=== PATIENT | female | born 1935 | race Caucasian/White ===

== ENCOUNTER 2020-03-26 22:12 | Inpatient (IN) | payer MEDICARE, OTHER ==
--- NOTE | 2020-03-26 22:34 | ERPHSYRPT ---
- History of Present Illness Time Seen by Provider: 03/26/20 22:34 Source: patient, family, EMS Exam Limitations: clinical condition Physician History: This is an 85-year-old white female who presents with fever and cough since yesterday (03/25/2020). Today she is still with a persistent low-grade fever but there is more confusion. Her has similar symptoms. She does not complain of shortness of breath or chest pain. She has no abdominal pain. She has no nausea vomiting or diarrhea. She had a headache earlier today but that has since resolved. 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 Associated Symptoms: confusion, cough, headache Allergies/Adverse Reactions: No Known Drug Allergies Allergy (Verified 03/26/20 23:14) Travel Risk - International Travel Have you traveled outside of the country in past 3 weeks: No - Coronavirus Screening Symptoms: Cough: New Onset, Headaches/Body Aches/Fatigue Close contact with a COVID-19 positive Pt in past 14-21 Days: No - Review of Systems Constitutional: Fever Eyes: No Symptoms Ears, Nose, & Throat: No Symptoms Respiratory: Cough Cardiac: No Symptoms Abdominal/Gastrointestinal: No Symptoms, No Abdominal Pain, No Nausea, No Vomiting, No Diarrhea Genitourinary Symptoms: No Symptoms Musculoskeletal: No Symptoms Skin: No Symptoms Neurological: No Symptoms Psychological: No Symptoms Endocrine: No Symptoms Hematologic/Lymphatic: No Symptoms Immunological/Allergic: No Symptoms All Other Systems: Reviewed and Negative - Past Medical History Pertinent Past Medical History: Yes Neurological History: No Pertinent History ENT History: No Pertinent History Cardiac History: No Pertinent History Respiratory History: No Pertinent History Endocrine Medical History: No Pertinent History Musculoskeletal History: No Pertinent History GI Medical History: No Pertinent History History: No Pertinent History Psycho-Social History: No Pertinent History Female Reproductive Disorders: No Pertinent History - Past Surgical History Past Surgical History: Yes Neuro Surgical History: No Pertinent History Cardiac: No Pertinent History Respiratory: No Pertinent History Gastrointestinal: No Pertinent History Genitourinary: No Pertinent History Musculoskeletal: No Pertinent History Female Surgical History: No Pertinent History - Social History Smoking Status: Never smoker - Nursing Vital Signs Nursing Vital Signs: Initial Vital Signs Temperature 99.4 F 03/26/20 22:52 Pulse Rate 85 03/26/20 22:52 Respiratory Rate 18 03/26/20 22:52 Blood Pressure 147/67 03/26/20 22:52 O2 Sat by Pulse Oximetry 92 L 03/26/20 22:52 Pain Scale Pain Intensity 0 - Physical Exam General Appearance: no apparent distress, alert, anxiety Eye Exam: PERRL/EOMI, eyes nml inspection ENT Exam: normal ENT inspection Neck Exam: normal inspection, non-tender, supple, full range of motion, trachea midline Respiratory Exam: normal breath sounds, chest non-tender, lungs clear, no respiratory distress, no accessory muscle use, No respiratory distress Cardiovascular/Chest Exam: normal heart sounds, regular rate/rhythm, normal peripheral pulses Gastrointestinal/Abdominal Exam: soft, non tender, no distention, no mass, no guarding, no ecchymosis, no organomegaly, no pulsatile mass, normal bowel sounds, No tenderness Pelvic Exam: not done Rectal Exam: not done Extremity Exam: non-tender Neurologic Exam: alert, cooperative, 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 No comparison EKG available) Ordered Tests: Active Orders 24 hr Category Date Time Status EKG-ER Only STAT Care 03/26/20 22:59 Active IV Insertion STAT Care 03/26/20 22:59 Active Pulse Oximetry (ED) STAT Care 03/26/20 22:59 Active CHEST 1 VIEW (PORTABLE) Stat Exams 03/27/20 00:02 Taken BLOOD CULTURE Stat Lab 03/26/20 22:47 Ordered CBC W DIFF Stat Lab 03/26/20 22:47 Completed CMP Stat Lab 03/26/20 22:47 Completed Lactic Acid Stat Lab 03/26/20 22:59 Completed Manual Differential NC Stat Lab 03/26/20 22:47 Completed [place] Screen Stat Lab 03/26/20 22:47 Completed UA W/RFX UR CULTURE Stat Lab 03/26/20 23:00 Completed Transfer Order Routine Transfer 03/27/20 Ordered Medication Summary Generic Name Dose Route Start Last Admin Trade Name Freq PRN Reason Stop Dose Admin Ceftriaxone Sodium/Dextrose 1 g in 50 mls @ 100 mls/hr 03/27/20 02:08 Rocephin 1 Gm-D5w 50 Ml Bag IV 03/27/20 02:37 STAT STA Discontinued Medications Generic Name Dose Route Start Last Admin Trade Name Nabila PRN Reason Stop Dose Admin Sodium Chloride 1,000 mls @ 999 mls/hr 03/26/20 22:59 03/26/20 23:52 Sodium Chloride 0.9% 1000 Ml IV 03/26/20 23:59 Not Given .Q1H1M STA Sodium Chloride Confirm 03/26/20 23:08 Sodium Chloride 0.9% 1000 Ml Administered 03/26/20 23:09 Dose 1,000 mls @ ud .ROUTE .STK-MED ONE Lab/Rad Data: Laboratory Result Diagrams 03/26/20 22:47 03/26/20 22:47 Laboratory Results 03/27/20 03/26/20 03/26/20 Range/Units 00:20 23:00 22:59 WBC (4.0-10.5) K/mm3 RBC (4.1-5.4) M/mm3 Hgb (12.0-16.0) gm/dl Hct (35-47) % MCV (78-100) fl MCH (26-32) pg MCHC (32-36) g/dl RDW (11.5-14.0) % Plt Count (150-450) K/mm3 MPV (7.5-11.0) fl Sodium (137-145) mmol/L Potassium (3.5-5.1) mmol/L Chloride (98-107) mmol/L Carbon Dioxide (22-30) mmol/L Anion Gap (5-15) MEQ/L BUN (7-17) mg/dL Creatinine (0.52-1.04) mg/dL Estimated GFR ML/MIN Glucose (74-106) mg/dL Lactic Acid 0.6 (0.4-2.0) Calcium (8.4-10.2) mg/dL Total Bilirubin (0.2-1.3) mg/dL AST (14-36) U/L ALT (0-35) U/L Alkaline Phosphatase (38-126) U/L Serum Total Protein (6.3-8.2) g/dL Albumin (3.5-5.0) g/dL Urine Color YELLOW (YELLOW) Urine Appearance SLIGHTLY CLOUDY (CLEAR) Urine pH 5.0 (5-6) Ur Specific [place] 1.018 (1.005-1.025) Urine Protein NEGATIVE (Negative) Urine Ketones NEGATIVE (NEGATIVE) Urine Blood NEGATIVE (0-5) Daniel/ul Urine Nitrite NEGATIVE (NEGATIVE) Urine Bilirubin NEGATIVE (NEGATIVE) Urine Urobilinogen NEGATIVE (0-1) mg/dL Ur Leukocyte Esterase NEGATIVE (NEGATIVE) Urine WBC (Auto) 3-5 (0-5) /HPF Urine RBC (Auto) 3-5 (0-2) /HPF U Hyaline Cast (Auto) 3-5 (0-2) /LPF U Epithel Cells (Auto) NONE (FEW) /HPF Urine Bacteria (Auto) NONE (NEGATIVE) /HPF Urine Mucus (Auto) SLIGHT (NEGATIVE) /HPF Urine Culture Reflexed NO (NO) Urine Glucose NEGATIVE (NEGATIVE) mg/dL Monoscreen (Negative) Influenza Type A Ag NEGATIVE (NEGATIVE) Influenza Type B Ag NEGATIVE (NEGATIVE) RSV (PCR) NEGATIVE (Negative) SARS-CoV-2 (PCR) POSITIVE A (NEGATIVE) Group A Strep Antibody NOT DETECTED (NEGATIVE) 03/26/20 03/26/20 03/26/20 Range/Units 22:47 22:47 22:47 WBC 9.4 (4.0-10.5) K/mm3 RBC 4.20 (4.1-5.4) M/mm3 Hgb 13.1 (12.0-16.0) gm/dl Hct 40.6 (35-47) % MCV 96.7 (78-100) fl MCH 31.2 (26-32) pg MCHC 32.3 (32-36) g/dl RDW 15.2 H (11.5-14.0) % Plt Count 165 (150-450) K/mm3 MPV 10.9 (7.5-11.0) fl Sodium 131 L (137-145) mmol/L Potassium 3.6 (3.5-5.1) mmol/L Chloride 100 (98-107) mmol/L Carbon Dioxide 26 (22-30) mmol/L Anion Gap 8.7 (5-15) MEQ/L BUN 22 H (7-17) mg/dL Creatinine 1.22 H (0.52-1.04) mg/dL Estimated GFR 44.7 ML/MIN Glucose 109 H (74-106) mg/dL Lactic Acid (0.4-2.0) Calcium 8.2 L (8.4-10.2) mg/dL Total Bilirubin 0.40 (0.2-1.3) mg/dL AST 22 (14-36) U/L ALT 16 (0-35) U/L Alkaline Phosphatase 68 (38-126) U/L Serum Total Protein 6.7 (6.3-8.2) g/dL Albumin 3.3 L (3.5-5.0) g/dL Urine Color (YELLOW) Urine Appearance (CLEAR) Urine pH (5-6) Ur Specific [place] (1.005-1.025) Urine Protein (Negative) Urine Ketones (NEGATIVE) Urine Blood (0-5) Daniel/ul Urine Nitrite (NEGATIVE) Urine Bilirubin (NEGATIVE) Urine Urobilinogen (0-1) mg/dL Ur Leukocyte Esterase (NEGATIVE) Urine WBC (Auto) (0-5) /HPF Urine RBC (Auto) (0-2) /HPF U Hyaline Cast (Auto) (0-2) /LPF U Epithel Cells (Auto) (FEW) /HPF Urine Bacteria (Auto) (NEGATIVE) /HPF Urine Mucus (Auto) (NEGATIVE) /HPF Urine Culture Reflexed (NO) Urine Glucose (NEGATIVE) mg/dL Monoscreen NEGATIVE (Negative) Influenza Type A Ag (NEGATIVE) Influenza Type B Ag (NEGATIVE) RSV (PCR) (Negative) SARS-CoV-2 (PCR) (NEGATIVE) Group A Strep Antibody (NEGATIVE) - Progress Progress: improved, re-examined Progress Note: 03/27/20 02:19 Chest x-ray reveals bilateral groundglass appearance. 03/27/20 02:19 Medical decision making: I spoke with the patient's primary care physician who is also the [facility]-19 unit physician human resources operations manager Dr. Pena. I reviewed the patient history, condition, laboratory results, EKG results and chest x-ray results with him. Patient will be admitted into the hospital to the COVID unit. Dr. Kc wants the patient to receive Rocephin intravenously. We will hold on the intravenous antibiotics at this time. Discussed with : Tomas Counseled pt/family regarding: lab results, diagnosis, need for follow-up, rad results - Departure Departure Disposition: In-patient Admission Clinical Impression: Lab test positive for detection of COVID-19 virus, Pneumonia Condition: Fair Critical Care Time: Yes Referrals: HERACLIO BARKSDALE [NON-STAFF PHY W/O PRIVILEGES] -
[2020-03-26] MEDS ORDERED: Sodium Chloride 0.9% 1000 ML 1,000 ML IV STA (22:59)
[2020-03-26] MEDS ORDERED: Sodium Chloride 0.9% 1000 ML 1,000 ML ONE (23:08)
[2020-03-26 23:18] LABS: Hematocrit 40.6 % (35-47); Hemoglobin 13.1 gm/dl (12.0-16.0); Mean Cell Volume 96.7 fl (78-100); Mean Corpuscular Hemoglobin 31.2 pg (26-32); Mean Corpuscular Hgb Concent. 32.3 g/dl (32-36); Mean Platelet Volume 10.9 fl (7.5-11.0); Platelet Count 165 K/mm3 (150-450); Red Cell Distribution Width 15.2 % (11.5-14.0); White Blood Count 9.4 K/mm3 (4.0-10.5)
[2020-03-26 23:28] LABS: Appearance SLIGHTLY CLOUDY (CLEAR); Bilirubin NEGATIVE (NEGATIVE); Blood NEGATIVE Ery/ul (0-5); Glucose NEGATIVE (NEGATIVE); Ketones NEGATIVE (NEGATIVE); Leukocyte Esterase NEGATIVE (NEGATIVE); Mucus SLIGHT /HPF (NEGATIVE); Nitrite NEGATIVE (NEGATIVE); Protein,Urine Dip NEGATIVE (Negative); Specific Gravity 1.018 (1.005-1.025); Urobilinogen NEGATIVE mg/dL (0-1)
[2020-03-26 23:33] LABS: ALBUMIN 3.3 g/dL (3.5-5.0); ANION GAP 8.7 MEQ/L (5-15); BILIRUBIN,TOTAL 0.4 mg/dL (0.2-1.3); Calcium 8.2 mg/dL (8.4-10.2); Creatinine 1 1.22 mg/dL (0.52-1.04); Potassium 3.6 mmol/L (3.5-5.1); Total Protein 6.7 g/dL (6.3-8.2)
[2020-03-27 00:59] LABS: INFLUENZA A NEGATIVE (NEGATIVE); INFLUENZA B NEGATIVE (NEGATIVE); RESPIRATORY SYNCTIAL VIRUS NEGATIVE (Negative)
[2020-03-27] MEDS ORDERED: ROCEPHIN 1 Gm-D5w 50 ml Bag** 1 G/50 ML IVPB IV STA (02:08)
[2020-03-27] MEDS ORDERED: ROCEPHIN 1 Gm-D5w 50 ml Bag** 1 G/50 ML IVPB IV ONE (02:27)
[2020-03-27] MEDS ORDERED: Zofran 4 MG/2 ML VIAL IV PRN (04:15)
[2020-03-27] MEDS ORDERED: TYLENOL 325 MG PO PRN (04:15)
[2020-03-27] MEDS ORDERED: Sodium Chloride 0.9% 500 ML 500 ML IV ONE (04:19)
[2020-03-27 04:22] LABS: BAND 13 % (0.0-2.0); Lymphocytes 16 % (24-44); Monocyte 3 % (0.0-12.0); Neutrophils 68 % (36.0-66.0); Platelet Estimate NORMAL (NORMAL); Total Cells Counted 100
[2020-03-27] MEDS: Sodium Chloride 0.9% 1000 ML 1,000 ML IV SCH ×2 (04:30→17:42)
[2020-03-27 09:17] LABS: A-aADO2 108; ABG HEMOGLOBIN 14.5; ABG POTASSIUM 3.7 (3.5-5.1); ARTERIAL BLOOD GAS FIO2 50 %; ARTERIAL BLOOD GAS PCO2 39 mmHg (35-45); ARTERIAL BLOOD GAS PO2 128 mmHg (75-100); ARTERIAL BLOOD GAS pH 7.45 (7.35-7.45); HCO3- 27.1 (22-28); HGB O2 SAT 97.3 g/dF (94-100); Methhemoglobin 0.8 % (1.4-1.5); paO2 pAO1 0.54
[2020-03-27 09:18] LABS: ABG SITE LEFT BRACHIAL; ALLEN TEST OK? Yes
--- NOTE | 2020-03-27 09:31 | XRAY ---
Indication: Fever and cough. Covid 19 positive. Comparison: None Portable chest hyperinflated with patchy left lower lung airspace opacities and tiny effusion. Elsewhere chronic interstitial lung markings, left upper lobe bullae, and left lung postsurgical changes. Heart is not enlarged. Bony thorax intact with osteopenia and degenerative changes.
[2020-03-27] MEDS: Decadron 4 MG INJ IV SCH ×2 (10:35→16:40)
--- NOTE | 2020-03-27 11:55 | PCM.HP ---
History of Present Illness - Chief Complaint Chief Complaint: COVID-19 positive, shortness of breath for 2 days History of Present Illness: is a 85 year old female who presents with fever and cough since yesterday (03/25/2020). Today she is still with a persistent low-grade fever but there is more confusion. Her has similar symptoms. She does not complain of shortness of breath or chest pain. She has no abdominal pain. She has no nausea vomiting or diarrhea. She had a headache earlier today but that has since resolved. 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 - Review of Systems Constitutional: Fever, Chills, Fatigue, Lethargy, Night Sweats, Weakness Eyes: No Symptoms Ears, Nose, & Throat: No Symptoms Respiratory: Cough, Short Of Breath Cardiac: No Chest Pain, No Edema, No Syncope Abdominal/Gastrointestinal: No Abdominal Pain, No Nausea, No Vomiting, No Diarrhea Genitourinary Symptoms: No Dysuria Musculoskeletal: No Back Pain, No Neck Pain Skin: No Rash Neurological: No Dizziness, No Focal Weakness, No Sensory Changes Psychological: No Symptoms Endocrine: No Symptoms Hematologic/Lymphatic: No Symptoms Immunological/Allergic: No Symptoms Medications & Allergies Home Medications: Home Medication List Unobtainable 03/27/20 [History Confirmed 03/27/20] Allergies/Adverse Reactions: Allergies Allergy/AdvReac Type Severity Reaction Status Date / Time Penicillins Allergy Verified 03/27/20 05:41 - Past Medical History Past Medical History: Yes Neurological History: No Pertinent History ENT History: No Pertinent History Cardiac History: No Pertinent History Respiratory History: COPD Endocrine Medical History: No Pertinent History Musculoskelatal History: No Pertinent History GI Medical History: No Pertinent History History: No Pertinent History Pyscho-Social History: No Pertinent History Reproductive Disorders: No Pertinent History Comment: rheumatoid arthritis. pt poor historian, unable to get medical hx at this time. some medical hx obtained from daughter - Female History Are you now?: No - Past Surgical History Past Surgical History: Yes Neuro Surgical History: No Pertinent History Cardiac History: No Pertinent History Respiratory Surgery: No Pertinent History GI Surgical History: Appendectomy Genitourinary Surgical Hx: No Pertinent History Musculskeletal Surgical Hx: No Pertinent History Female Surgical History: Hysterectomy Other Surgical History: Pt poor historian - Social History Smoking Status: Never smoker Exposure to second hand smoke: No Alcohol: None Drug Use: none - Physical Exam Vital Signs: Vital Signs - 24 hr Temp Pulse Resp BP BP Pulse Ox 03/27/20 11:00 22 03/27/20 10:00 22 03/27/20 09:52 70 20 98 03/27/20 09:00 22 03/27/20 08:00 20 03/27/20 07:49 89 L 03/27/20 07:22 100.5 F 73 20 143/67 96 03/27/20 07:00 22 03/27/20 05:54 68 18 91 L 03/27/20 05:43 69 19 92 L 03/27/20 05:40 69 19 92 L 03/27/20 05:13 97 F 73 18 141/74 98 03/27/20 04:14 97.1 F 73 18 141/72 141/74 98 03/27/20 03:00 68 14 125/60 99 03/27/20 02:00 77 16 116/64 97 03/27/20 00:52 73 18 133/69 94 L 03/26/20 22:59 92 L 03/26/20 22:52 99.4 F 85 18 147/67 92 L Oxygen-Last 24 hours Oxygen Flowrate (L/min)-RT 2 General Appearance: no apparent distress, alert Neurologic Exam: alert, oriented x 3, cooperative, normal mood/affect, nml cerebellar function, nml station & gait, sensation nml, No motor deficits Eye Exam: PERRL/EOMI, eyes nml inspection Ears, Nose, Throat Exam: normal ENT inspection, TMs normal, pharynx normal, moist mucous membranes Neck Exam: normal inspection, non-tender, supple, full range of motion Respiratory Exam: respiratory distress, crackles/rales, rhonchi, wheezing Cardiovascular Exam: regular rate/rhythm, normal heart sounds, normal peripheral pulses Gastrointestinal/Abdomen Exam: soft, normal bowel sounds, No tenderness, No mass Back Exam: normal inspection, normal range of motion, No CVA tenderness, No vertebral tenderness Extremity Exam: normal inspection, normal range of motion, pelvis stable Skin Exam: normal color, warm, dry, No rash Lymphatic Exam: No adenopathy Results - Labs Lab/Micro Results: Lab Results-Last 24 Hours 03/26/20 03/26/2003/26/20 Range/Units 22:47 22:47 22:47 WBC 9.4 (4.0-10.5) K/mm3 RBC 4.20 (4.1-5.4) M/mm3 Hgb 13.1 (12.0-16.0) gm/dl Hct 40.6 (35-47) % MCV 96.7 (78-100) fl MCH 31.2 (26-32) pg MCHC 32.3 (32-36) g/dl RDW 15.2 H (11.5-14.0) % Plt Count 165 (150-450) K/mm3 MPV 10.9 (7.5-11.0) fl Segmented Neutrophils 68 H (36.0-66.0) % Band Neutrophils 13 H (0.0-2.0) % Lymphocytes (Manual) 16 L (24-44) % Monocytes (Manual) 3 (0.0-12.0) % Platelet Estimate NORMAL (NORMAL) RBC Morphology NORMAL Puncture Site pCO2 (35-45) mmHg pO2 (75-100) mmHg Base Excess (-2.0-2.0) O2 Saturation (94-100) g/dF ABG pH (7.35-7.45) ABG HCO3 (22-28) ABG O2 Sat (Measured) (95-100) % Mert Test A-a Gradient a/A Ratio Hemoglobin Carboxyhemoglobin (0.0-6.9) % THgb Methemoglobin (1.4-1.5) % Temperature C POC O2 Flow Rate % Sodium 131 L (137-145) mmol/L Potassium 3.6 (3.5-5.1) mmol/L Chloride 100 (98-107) mmol/L Carbon Dioxide 26 (22-30) mmol/L Anion Gap 8.7 (5-15) MEQ/L BUN 22 H (7-17) mg/dL Creatinine 1.22 H (0.52-1.04) mg/dL Estimated GFR 44.7 ML/MIN Glucose 109 H (74-106) mg/dL Lactic Acid (0.4-2.0) Calcium 8.2 L (8.4-10.2) mg/dL Total Bilirubin 0.40 (0.2-1.3) mg/dL AST 22 (14-36) U/L ALT 16 (0-35) U/L Alkaline Phosphatase 68 (38-126) U/L Serum Total Protein 6.7 (6.3-8.2) g/dL Albumin 3.3 L (3.5-5.0) g/dL Urine Color (YELLOW) Urine Appearance (CLEAR) Urine pH (5-6) Ur Specific Martin (1.005-1.025) Urine Protein (Negative) Urine Ketones (NEGATIVE) Urine Blood (0-5) Daniel/ul Urine Nitrite (NEGATIVE) Urine Bilirubin (NEGATIVE) Urine Urobilinogen (0-1) mg/dL Ur Leukocyte Esterase (NEGATIVE) Urine WBC (Auto) (0-5) /HPF Urine RBC (Auto) (0-2) /HPF U Hyaline Cast (Auto) (0-2) /LPF U Epithel Cells (Auto) (FEW) /HPF Urine Bacteria (Auto) (NEGATIVE) /HPF Urine Mucus (Auto) (NEGATIVE) /HPF Urine Culture Reflexed (NO) Urine Glucose (NEGATIVE) mg/dL Monoscreen NEGATIVE (Negative) Influenza Type A Ag (NEGATIVE) Influenza Type B Ag (NEGATIVE) RSV (PCR) (Negative) SARS-CoV-2 (PCR) (NEGATIVE) Group A Strep Antibody (NEGATIVE) 03/26/20 03/26/20 03/27/20 Range/Units 22:59 23:00 00:20 WBC (4.0-10.5) K/mm3 RBC (4.1-5.4) M/mm3 Hgb (12.0-16.0) gm/dl Hct (35-47) % MCV (78-100) fl MCH (26-32) pg MCHC (32-36) g/dl RDW (11.5-14.0) % Plt Count (150-450) K/mm3 MPV (7.5-11.0) fl Segmented Neutrophils (36.0-66.0) % Band Neutrophils (0.0-2.0) % Lymphocytes (Manual) (24-44) % Monocytes (Manual) (0.0-12.0) % Platelet Estimate (NORMAL) RBC Morphology Puncture Site pCO2 (35-45) mmHg pO2 (75-100) mmHg Base Excess (-2.0-2.0) O2 Saturation (94-100) g/dF ABG pH (7.35-7.45) ABG HCO3 (22-28) ABG O2 Sat (Measured) (95-100) % Mert Test A-a Gradient a/A Ratio Hemoglobin Carboxyhemoglobin (0.0-6.9) % THgb Methemoglobin (1.4-1.5) % Temperature C POC O2 Flow Rate % Sodium (137-145) mmol/L Potassium (3.5-5.1) mmol/L Chloride (98-107) mmol/L Carbon Dioxide (22-30) mmol/L Anion Gap (5-15) MEQ/L BUN (7-17) mg/dL Creatinine (0.52-1.04) mg/dL Estimated GFR ML/MIN Glucose (74-106) mg/dL Lactic Acid 0.6 (0.4-2.0) Calcium (8.4-10.2) mg/dL Total Bilirubin (0.2-1.3) mg/dL AST (14-36) U/L ALT (0-35) U/L Alkaline Phosphatase (38-126) U/L Serum Total Protein (6.3-8.2) g/dL Albumin (3.5-5.0) g/dL Urine Color YELLOW (YELLOW) Urine Appearance SLIGHTLY CLOUDY (CLEAR) Urine pH 5.0 (5-6) Ur Specific Martin 1.018 (1.005-1.025) Urine Protein NEGATIVE (Negative) Urine Ketones NEGATIVE (NEGATIVE) Urine Blood NEGATIVE (0-5) Daniel/ul Urine Nitrite NEGATIVE (NEGATIVE) Urine Bilirubin NEGATIVE (NEGATIVE) Urine Urobilinogen NEGATIVE (0-1) mg/dL Ur Leukocyte Esterase NEGATIVE (NEGATIVE) Urine WBC (Auto) 3-5 (0-5) /HPF Urine RBC (Auto) 3-5 (0-2) /HPF U Hyaline Cast (Auto) 3-5 (0-2) /LPF U Epithel Cells (Auto) NONE (FEW) /HPF Urine Bacteria (Auto) NONE (NEGATIVE) /HPF Urine Mucus (Auto) SLIGHT (NEGATIVE) /HPF Urine Culture Reflexed NO (NO) Urine Glucose NEGATIVE (NEGATIVE) mg/dL Monoscreen (Negative) Influenza Type A Ag NEGATIVE (NEGATIVE) Influenza Type B Ag NEGATIVE (NEGATIVE) RSV (PCR) NEGATIVE (Negative) SARS-CoV-2 (PCR) POSITIVE A (NEGATIVE) Group A Strep Antibody NOT DETECTED (NEGATIVE) 03/27/20 Range/Units 08:57 WBC (4.0-10.5) K/mm3 RBC (4.1-5.4) M/mm3 Hgb (12.0-16.0) gm/dl Hct (35-47) % MCV (78-100) fl MCH (26-32) pg MCHC (32-36) g/dl RDW (11.5-14.0) % Plt Count (150-450) K/mm3 MPV (7.5-11.0) fl Segmented Neutrophils (36.0-66.0) % Band Neutrophils (0.0-2.0) % Lymphocytes (Manual) (24-44) % Monocytes (Manual) (0.0-12.0) % Platelet Estimate (NORMAL) RBC Morphology Puncture Site LEFT BRACHIAL pCO2 39 (35-45) mmHg pO2 128 H* (75-100) mmHg Base Excess 3.0 H (-2.0-2.0) O2 Saturation 97.3 (94-100) g/dF ABG pH 7.45 (7.35-7.45) ABG HCO3 27.1 (22-28) ABG O2 Sat (Measured) 98.0 (95-100) % Mert Test Yes A-a Gradient 108 a/A Ratio 0.54 Hemoglobin 14.5 Carboxyhemoglobin 0.0 (0.0-6.9) % THgb Methemoglobin 0.8 L (1.4-1.5) % Temperature 37.0 C POC O2 Flow Rate 50 % Sodium (137-145) mmol/L Potassium 3.7 (3.5-5.1) mmol/L Chloride (98-107) mmol/L Carbon Dioxide (22-30) mmol/L Anion Gap (5-15) MEQ/L BUN (7-17) mg/dL Creatinine (0.52-1.04) mg/dL Estimated GFR ML/MIN Glucose (74-106) mg/dL Lactic Acid (0.4-2.0) Calcium (8.4-10.2) mg/dL Total Bilirubin (0.2-1.3) mg/dL AST (14-36) U/L ALT (0-35) U/L Alkaline Phosphatase (38-126) U/L Serum Total Protein (6.3-8.2) g/dL Albumin (3.5-5.0) g/dL Urine Color (YELLOW) Urine Appearance (CLEAR) Urine pH (5-6) Ur Specific Martin (1.005-1.025) Urine Protein (Negative) Urine Ketones (NEGATIVE) Urine Blood (0-5) Daniel/ul Urine Nitrite (NEGATIVE) Urine Bilirubin (NEGATIVE) Urine Urobilinogen (0-1) mg/dL Ur Leukocyte Esterase (NEGATIVE) Urine WBC (Auto) (0-5) /HPF Urine RBC (Auto) (0-2) /HPF U Hyaline Cast (Auto) (0-2) /LPF U Epithel Cells (Auto) (FEW) /HPF Urine Bacteria (Auto) (NEGATIVE) /HPF Urine Mucus (Auto) (NEGATIVE) /HPF Urine Culture Reflexed (NO) Urine Glucose (NEGATIVE) mg/dL Monoscreen (Negative) Influenza Type A Ag (NEGATIVE) Influenza Type B Ag (NEGATIVE) RSV (PCR) (Negative) SARS-CoV-2 (PCR) (NEGATIVE) Group A Strep Antibody (NEGATIVE) - Radiology Impressions Radiology Exams & Impressions: Radiology Procedures Category Date Time Status CHEST 1 VIEW (PORTABLE) Stat Exams 03/27/20 00:02 Completed - Other Procedures and Tests Respiratory Therapy 03/27/20 05:39 Oxygen Nasal Cannula 2 lpm 03/27/20 05:43 Respiratory Therapy Assessment DAILY 03/27/20 13:00 IPPB Treatment TID Assessment/Plan (1) Lab test positive for detection of COVID-19 virus Current Visit: Yes Status: Acute Assessment & Plan: Chief Complaint Diagnosis COVID-19 positive, pneumonia Allergies Allergy/AdvReac Type Severity Reaction Status Date / Time Penicillins Allergy Verified 03/27/20 05:41 Vital Signs (Last 24 hours) Temp Pulse Resp BP BP Pulse Ox 03/27/20 11:00 22 03/27/20 10:00 22 03/27/20 09:52 70 20 98 03/27/20 09:00 22 03/27/20 08:00 20 03/27/20 07:49 89 L 03/27/20 07:22 100.5 F 73 20 143/67 96 03/27/20 07:00 22 03/27/20 05:54 68 18 91 L 03/27/20 05:43 69 19 92 L 03/27/20 05:40 69 19 92 L 03/27/20 05:13 97 F 73 18 141/74 98 03/27/20 04:14 97.1 F 73 18 141/72 141/74 98 03/27/20 03:00 68 14 125/60 99 03/27/20 02:00 77 16 116/64 97 03/27/20 00:52 73 18 133/69 94 L 03/26/20 22:59 92 L 03/26/20 22:52 99.4 F 85 18 147/67 92 L Home Medications Medication Instructions Recorded Confirmed Last Taken Type Unobtainable 03/27/20 03/27/20 Unknown History Current Medications Generic Name Dose Route Start Last Admin Trade Name Freq PRN Reason Stop Dose Admin Acetaminophen 650 mg 03/27/20 04:15 03/27/20 10:43 Tylenol 325 Mg PO 04/26/20 04:14 650 mg Q4H PRN PRN Administration PAIN AND/OR FEVER Dexamethasone Sodium Phosphate 4 mg 03/27/20 09:15 03/27/20 10:35 Decadron 4 Mg Inj IV 04/26/20 09:14 4 mg Q8H CHARLY Administration Sodium Chloride 1,000 mls @ 0 mls/hr 03/27/20 04:15 03/27/20 04:30 Sodium Chloride 0.9% 1000 Ml IV 04/26/20 04:14 30 mls/hr .Q0M CHARLY Administration KVO Ceftriaxone Sodium/Dextrose 1 g in 50 mls @ 100 mls/hr 03/27/20 22:00 Rocephin 1 Gm-D5w 50 Ml Bag IV 04/26/20 21:59 QPM CHARLY Ondansetron HCl 4 mg 03/27/20 04:15 Zofran 4 Mg/2 Ml Vial IV 04/26/20 04:14 Q6H PRN PRN NAUSEA/VOMITING Discontinued Medications Generic Name Dose Route Start Last Admin Trade Name Freq PRN Reason Stop Dose Admin Sodium Chloride 1,000 mls @ 999 mls/hr 03/26/20 22:59 03/26/20 23:52 Sodium Chloride 0.9% 1000 Ml IV 03/26/20 23:59 Not Given .Q1H1M STA Sodium Chloride Confirm 03/26/20 23:08 Sodium Chloride 0.9% 1000 Ml Administered 03/26/20 23:09 Dose 1,000 mls @ ud .ROUTE .STK-MED ONE Ceftriaxone Sodium/Dextrose 1 g in 50 mls @ 100 mls/hr 03/27/20 02:08 03/27/20 02:38 Rocephin 1 Gm-D5w 50 Ml Bag IV 03/27/20 02:37 100 ml/hr STAT STA 100 mls/hr Administration Ceftriaxone Sodium/Dextrose Confirm 03/27/20 02:27 Rocephin 1 Gm-D5w 50 Ml Bag Administered 03/27/20 02:28 Dose 1 g in 50 mls @ ud IV .STK-MED ONE Sodium Chloride Confirm 03/27/20 04:19 Sodium Chloride 0.9% 500 Ml Administered 03/27/20 04:20 Dose 500 mls @ ud IV .STK-MED ONE Intake & Output (Last 24 hours) 03/24/20 03/25/20 03/26/20 03/27/20 11:59 11:59 11:59 11:59 Intake Total 340 Output Total 850 Balance -510 Weight 59.1 kg Microbiology Results (Last 24 hours) 03/26/20 23:40 Blood Blood Culture Gram Stain - Pending 03/26/20 23:40 Blood Blood Culture - Pending 03/26/20 22:47 Blood Blood Culture Gram Stain - Pending 03/26/20 22:47 Blood Blood Culture - Pending Laboratory Results (Last 24 hours) 03/27/20 03/27/20 03/26/20 08:57 00:20 23:00 WBC RBC Hgb Hct MCV MCH MCHC RDW Plt Count MPV Segmented Neutrophils Band Neutrophils Lymphocytes (Manual) Monocytes (Manual) Platelet Estimate RBC Morphology Puncture Site LEFT BRACHIAL pCO2 39 pO2 128 H* Base Excess 3.0 H O2 Saturation 97.3 ABG pH 7.45 ABG HCO3 27.1 ABG O2 Sat (Measured) 98.0 Mert Test Yes A-a Gradient 108 a/A Ratio 0.54 Hemoglobin 14.5 Carboxyhemoglobin 0.0 Methemoglobin 0.8 L Temperature 37.0 POC O2 Flow Rate 50 Sodium Potassium 3.7 Chloride Carbon Dioxide Anion Gap BUN Creatinine Estimated GFR Glucose Lactic Acid Calcium Total Bilirubin AST ALT Alkaline Phosphatase Serum Total Protein Albumin Urine Color YELLOW Urine Appearance SLIGHTLY CLOUDY Urine pH 5.0 Ur Specific Martin 1.018 Urine Protein NEGATIVE Urine Ketones NEGATIVE Urine Blood NEGATIVE Urine Nitrite NEGATIVE Urine Bilirubin NEGATIVE Urine Urobilinogen NEGATIVE Ur Leukocyte Esterase NEGATIVE Urine WBC (Auto) 3-5 Urine RBC (Auto) 3-5 U Hyaline Cast (Auto) 3-5 U Epithel Cells (Auto) NONE Urine Bacteria (Auto) NONE Urine Mucus (Auto) SLIGHT Urine Culture Reflexed NO Urine Glucose NEGATIVE Monoscreen Influenza Type A Ag NEGATIVE Influenza Type B Ag NEGATIVE RSV (PCR) NEGATIVE SARS-CoV-2 (PCR) POSITIVE A Group A Strep Antibody NOT DETECTED 03/26/20 03/26/20 03/26/20 22:59 22:47 22:47 WBC RBC Hgb Hct MCV MCH MCHC RDW Plt Count MPV Segmented Neutrophils Band Neutrophils Lymphocytes (Manual) Monocytes (Manual) Platelet Estimate RBC Morphology Puncture Site pCO2 pO2 Base Excess O2 Saturation ABG pH ABG HCO3 ABG O2 Sat (Measured) Mert Test A-a Gradient a/A Ratio Hemoglobin Carboxyhemoglobin Methemoglobin Temperature POC O2 Flow Rate Sodium 131 L Potassium 3.6 Chloride 100 Carbon Dioxide 26 Anion Gap 8.7 BUN 22 H Creatinine 1.22 H Estimated GFR 44.7 Glucose 109 H Lactic Acid 0.6 Calcium 8.2 L Total Bilirubin 0.40 AST 22 ALT 16 Alkaline Phosphatase 68 Serum Total Protein 6.7 Albumin 3.3 L Urine Color Urine Appearance Urine pH Ur Specific Martin Urine Protein Urine Ketones Urine Blood Urine Nitrite Urine Bilirubin Urine Urobilinogen Ur Leukocyte Esterase Urine WBC (Auto) Urine RBC (Auto) U Hyaline Cast (Auto) U Epithel Cells (Auto) Urine Bacteria (Auto) Urine Mucus (Auto) Urine Culture Reflexed Urine Glucose Monoscreen NEGATIVE Influenza Type A Ag Influenza Type B Ag RSV (PCR) SARS-CoV-2 (PCR) Group A Strep Antibody 03/26/20 22:47 WBC 9.4 RBC 4.20 Hgb 13.1 Hct 40.6 MCV 96.7 MCH 31.2 MCHC 32.3 RDW 15.2 H Plt Count 165 MPV 10.9 Segmented Neutrophils 68 H Band Neutrophils 13 H Lymphocytes (Manual) 16 L Monocytes (Manual) 3 Platelet Estimate NORMAL RBC Morphology NORMAL Puncture Site pCO2 pO2 Base Excess O2 Saturation ABG pH ABG HCO3 ABG O2 Sat (Measured) Mert Test A-a Gradient a/A Ratio Hemoglobin Carboxyhemoglobin Methemoglobin Temperature POC O2 Flow Rate Sodium Potassium Chloride Carbon Dioxide Anion Gap BUN Creatinine Estimated GFR Glucose Lactic Acid Calcium Total Bilirubin AST ALT Alkaline Phosphatase Serum Total Protein Albumin Urine Color Urine Appearance Urine pH Ur Specific Martin Urine Protein Urine Ketones Urine Blood Urine Nitrite Urine Bilirubin Urine Urobilinogen Ur Leukocyte Esterase Urine WBC (Auto) Urine RBC (Auto) U Hyaline Cast (Auto) U Epithel Cells (Auto) Urine Bacteria (Auto) Urine Mucus (Auto) Urine Culture Reflexed Urine Glucose Monoscreen Influenza Type A Ag Influenza Type B Ag RSV (PCR) SARS-CoV-2 (PCR) Group A Strep Antibody Orders (Last 24 hours) Category Date Time Status Bedrest ROUTINE Activity 03/27/20 04:15 Active Admit as Inpatient ROUTINE Care 03/27/20 04:15 Active Machine [place] Q4H Care 03/27/20 04:15 Completed EKG-ER Only STAT Care 03/26/20 22:59 Completed Elevate HOB ROUTINE Care 03/27/20 04:15 Active IV Care Q6H Care 03/27/20 04:15 Active IV Insertion STAT Care 03/26/20 22:59 Completed Isolation, Initiate & Maintain Q6H Care 03/27/20 04:15 Active Pulse Oximetry (ED) STAT Care 03/26/20 22:59 Completed Telemetry q4h Care 03/27/20 04:15 Active Weight,Daily 0600 Care 03/27/20 04:15 Active House Regular Diet Diet 03/27/20 Breakfast Active CHEST 1 VIEW (PORTABLE) Stat Exams 03/27/20 00:02 Completed ABG [ARTERIAL BLOOD GASES] Stat Lab 03/27/20 08:57 Completed BLOOD CULTURE Stat Lab 03/26/20 23:40 Received CBC W DIFF AM.LAB Lab 03/28/20 04:00 Ordered CBC W DIFF Stat Lab 03/26/20 22:47 Completed CMP AM.LAB Lab 03/28/20 04:00 Ordered CMP Stat Lab 03/26/20 22:47 Completed Lactic Acid Stat Lab 03/26/20 22:59 Completed Manual Differential NC Stat Lab 03/26/20 22:47 Completed [place] Screen Stat Lab 03/26/20 22:47 Completed UA W/RFX UR CULTURE Stat Lab 03/26/20 23:00 Completed Acetaminophen 325 mg [Tylenol 325 mg] Med 03/27/20 04:15 Active 650 mg PO Q4H PRN PRN Ceftriaxone 1 GM/50 ML PREMIX* [ROCEPHIN 1 Gm-D5w 50 ml Med 03/27/20 22:00 Active Bag] 1 g in 50 ml IV QPM Ceftriaxone 1 GM/50 ML PREMIX* [ROCEPHIN 1 Gm-D5w 50 ml Med 03/27/20 02:08 Discontinued Bag] 1 g in 50 ml IV STAT Ceftriaxone 1 GM/50 ML PREMIX* [ROCEPHIN 1 Gm-D5w 50 ml Med 03/27/20 02:27 Discontinued Bag] 1 g in 50 ml IV UD Dexamethasone 4 mg [Decadron 4 MG INJ] Med 03/27/20 09:15 Active 4 mg IV Q8H NaCl 0.9% 1000 ml [Sodium Chloride 0.9% 1000 ML] 1,000 Med 03/26/20 23:08 Discontinued ml .ROUTE UD NaCl 0.9% 1000 ml [Sodium Chloride 0.9% 1000 ML] 1,000 Med 03/26/20 22:59 Discontinued ml IV 999 mls/hr NaCl 0.9% 1000 ml [Sodium Chloride 0.9% 1000 ML] 1,000 Med 03/27/20 04:15 Active ml IV KVO NaCl 0.9% 500 ml [Sodium Chloride 0.9% 500 ML] 500 ml Med 03/27/20 04:19 Disco ntinued IV UD Ondansetron HCl 4 mg/2 ml [Zofran 4 MG/2 ML VIAL] Med 03/27/20 04:15 Active 4 mg IV Q6H PRN PRN IPPB Treatment TID RT 03/27/20 13:00 Active Oxygen Nasal Cannula 2 lpm RT 03/27/20 05:39 Active Pulse Oximetry .continuos RT 03/27/20 05:39 Active Respiratory Therapy Assessment DAILY RT 03/27/20 05:43 Active Respiratory Therapy Consult ROUTINE RT 03/27/20 04:15 Completed Transfer Order Routine Transfer 03/27/20 Completed Patient Care Notes (Last 24 hours) 03/27/20 08:49 Respiratory Note by Thao Solano SPO2 87% ON N/C 4 LPM. PLACED ONB OXYMASK 6LPM SPO2 98% Initialized on 03/27/20 08:49 - END OF NOTE 03/27/20 08:07 Nursing Note by Stepro,Mercedes Sats 89-90% on 2L NC and O2 increased to 4L NC. Up to BSC with assist. Very weak. Cough prod and loose. mod mosley sputum. Initialized on 03/27/20 08:07 - END OF NOTE Code(s): U07.1 - COVID-19 (2) Pneumonia Current Visit: Yes Status: Acute Qualifiers: Pneumonia type: due to unspecified organism Laterality: bilateral Lung location: unspecified part of lung Qualified Code(s): J18.9 - Pneumonia, unspecified organism Code(s): J18.9 - PNEUMONIA, UNSPECIFIED ORGANISM
[2020-03-27] MEDS: HYDROXYCHLOROQUINE SULFATE PO SCH (16:40)
[2020-03-27] MEDS: SYNTHROID 75 MCG PO SCH (16:40)
[2020-03-27] MEDS: VOLTAREN 50 MG PO SCH (16:40)
[2020-03-27] MEDS ORDERED: DICLOFENAC SODIUM 100 MG PO SCH (22:00)
[2020-03-27] MEDS ORDERED: ROCEPHIN 1 Gm-D5w 50 ml Bag** 1 G/50 ML IVPB IV SCH (22:00)
[2020-03-28] MEDS: Decadron 4 MG INJ IV SCH ×2 (01:00→14:24)
[2020-03-28 06:55] LABS: Hematocrit 45.8 % (35-47); Hemoglobin 14.6 gm/dl (12.0-16.0); Mean Cell Volume 97.4 fl (78-100); Mean Corpuscular Hemoglobin 31.1 pg (26-32); Mean Corpuscular Hgb Concent. 31.9 g/dl (32-36); Mean Platelet Volume 10.9 fl (7.5-11.0); Platelet Count 141 K/mm3 (150-450); Red Cell Distribution Width 15.1 % (11.5-14.0); White Blood Count 5.7 K/mm3 (4.0-10.5)
[2020-03-28 07:24] LABS: ALBUMIN 3.4 g/dL (3.5-5.0); ALKALINE PHOSPHATASE 66 U/L (38-126); BLOOD UREA NITROGEN 18 mg/dL (7-17); CHLORIDE 107 mmol/L (98-107); Calcium 8.7 mg/dL (8.4-10.2); Carbon Dioxide 26 mmol/L (22-30); Creatinine 1 0.74 mg/dL (0.52-1.04); Glucose 157 mg/dL (74-106); SGOT/AST 43 U/L (14-36); SGPT/ALT 16 U/L (0-35); SODIUM 139 mmol/L (137-145); Total Protein 7.1 g/dL (6.3-8.2)
[2020-03-28] MEDS: VOLTAREN 50 MG PO SCH ×2 (08:08→16:46)
[2020-03-28] MEDS: SYNTHROID 75 MCG PO SCH (08:20)
[2020-03-28] MEDS: HYDROXYCHLOROQUINE SULFATE PO SCH (09:37)
--- NOTE | 2020-03-28 09:39 | PCM.NOTE ---
Date and Time: 03/28/20937 Subjective Assessment: doing better, no shortness of breath, eating well - Review of Systems Constitutional: No Fever, No Chills Eyes: No Symptoms Ears, Nose, & Throat: No Symptoms Respiratory: No Cough, No Short Of Breath Cardiac: No Chest Pain, No Edema, No Syncope Abdominal/Gastrointestinal: No Abdominal Pain, No Nausea, No Vomiting, No Diarrhea Genitourinary Symptoms: No Dysuria Musculoskeletal: No Back Pain, No Neck Pain Skin: No Rash Neurological: No Dizziness, No Focal Weakness, No Sensory Changes Psychological: No Symptoms Endocrine: No Symptoms Hematologic/Lymphatic: No Symptoms Immunological/Allergic: No Symptoms Objective Exam General Appearance: no apparent distress, alert Neurologic Exam: alert, oriented x 3, cooperative, normal mood/affect, nml cerebellar function, sensation nml, No motor deficits Skin Exam: normal color, warm, dry Eye Exam: PERRL, EOMI, eyes nml inspection Ears, Nose, Throat Exam: normal ENT inspection, pharynx normal, moist mucous membranes Neck Exam: normal inspection, non-tender, supple, full range of motion Respiratory Exam: normal breath sounds, lungs clear, No respiratory distress Cardiovascular Exam: regular rate/rhythm, normal heart sounds Gastrointestinal/Abdomen Exam: soft, No tenderness, No mass Extremity Exam: normal inspection, normal range of motion Back Exam: normal inspection, normal range of motion, No CVA tenderness, No vertebral tenderness Pelvic Exam: deferred Rectal Exam: deferred OBJECTIVE DATA Vital Signs: Vital Signs - 24 hr Temp Pulse Resp BP Pulse Ox 03/28/20 08:10 71 16 96 03/28/20 08:00 98.6 F 66 18 141/74 98 03/28/20 07:00 16 03/28/20 06:00 95.1 F 67 16 150/83 97 03/28/20 05:00 14 03/28/20 04:00 96.8 F 59 L 14 96 03/28/20 03:00 14 03/28/20 02:00 97.5 F 52 L 14 132/66 97 03/28/20 00:48 16 03/28/20 00:00 61 16 96 03/27/20 23:00 16 03/27/20 22:00 97.5 F 72 16 147/70 98 03/27/20 21:24 18 03/27/20 21:00 18 03/27/20 20:54 74 20 98 03/27/20 20:00 97.7 F 69 18 135/74 95 03/27/20 19:00 18 03/27/20 18:00 79 19 97 03/27/20 17:00 16 03/27/20 16:00 97.2 F 68 16 112/65 97 03/27/20 15:00 17 03/27/20 14:30 88 20 96 03/27/20 14:00 18 03/27/20 13:34 97.7 F 84 20 96 03/27/20 13:00 18 03/27/20 12:00 20 03/27/20 11:58 99.8 F 85 12 117/58 98 03/27/20 11:00 22 03/27/20 10:00 22 03/27/20 09:52 70 20 98 Oxygen-Last 24 hours Oxygen Flowrate (L/min)-RT 4 Oxygen Flowrate (L/min)-RT 4 Pain Assessment - Last Documented Pain Intensity 0 Pain Scale Used 0-10 Pain Scale Intake and Output: Intake & Output 03/25/20 03/26/20 03/27/20 03/28/20 11:59 11:59 11:59 11:59 Intake Total 340 892 Output Total 850 1850 Balance -510 -958 Weight 59.1 kg Lab Results: Lab Results-Last 24 Hours 03/28/20 03/28/20 Range/Units 06:20 06:20 WBC 5.7 (4.0-10.5) K/mm3 RBC 4.70 (4.1-5.4) M/mm3 Hgb 14.6 (12.0-16.0) gm/dl Hct 45.8 (35-47) % MCV 97.4 (78-100) fl MCH 31.1 (26-32) pg MCHC 31.9 L (32-36) g/dl RDW 15.1 H (11.5-14.0) % Plt Count 141 L (150-450) K/mm3 MPV 10.9 (7.5-11.0) fl Sodium 139 D (137-145) mmol/L Potassium 4.0 (3.5-5.1) mmol/L Chloride 107 (98-107) mmol/L Carbon Dioxide 26 (22-30) mmol/L Anion Gap 10.0 (5-15) MEQ/L BUN 18 H (7-17) mg/dL Creatinine 0.74 (0.52-1.04) mg/dL Estimated GFR > 60.0 ML/MIN Glucose 157 H (74-106) mg/dL Calcium 8.7 (8.4-10.2) mg/dL Total Bilirubin 0.40 (0.2-1.3) mg/dL AST 43 H (14-36) U/L ALT 16 (0-35) U/L Alkaline Phosphatase 66 (38-126) U/L Serum Total Protein 7.1 (6.3-8.2) g/dL Albumin 3.4 L (3.5-5.0) g/dL Radiology Exams: Radiology Procedures Category Date Time Status CHEST 1 VIEW (PORTABLE) Stat Exams 03/27/20 00:02 Completed Multi-Disciplinary Progress Notes: Multi-Disciplinary Progress Notes 03/27/20 20:56 Respiratory Note by Nicolasa Alba PAP DONE WITH PATIENT Initialized on 03/27/20 20:56 - END OF NOTE 03/27/20 14:34 Respiratory Note by Thao Solano STARTED AND COMPLETED AT 1350. Initialized on 03/27/20 14:34 - END OF NOTE Assessment/Plan (1) Lab test positive for detection of COVID-19 virus Current Visit: Yes Status: Acute Assessment & Plan: Chief Complaint Diagnosis COVID-19 positive, shortness of breath for 2 days Allergies Allergy/AdvReac Type Severity Reaction Status Date / Time Penicillins Allergy Verified 03/27/20 05:41 Vital Signs (Last 24 hours) Temp Pulse Resp BP Pulse Ox 03/28/20 08:10 71 16 96 03/28/20 08:00 98.6 F 66 18 141/74 98 03/28/20 07:00 16 03/28/20 06:00 95.1 F 67 16 150/83 97 03/28/20 05:00 14 03/28/20 04:00 96.8 F 59 L 14 96 03/28/20 03:00 14 03/28/20 02:00 97.5 F 52 L 14 132/66 97 03/28/20 00:48 16 03/28/20 00:00 61 16 96 03/27/20 23:00 16 03/27/20 22:00 97.5 F 72 16 147/70 98 03/27/20 21:24 18 03/27/20 21:00 18 03/27/20 20:54 74 20 98 03/27/20 20:00 97.7 F 69 18 135/74 95 03/27/20 19:00 18 03/27/20 18:00 79 19 97 03/27/20 17:00 16 03/27/20 16:00 97.2 F 68 16 112/65 97 03/27/20 15:00 17 03/27/20 14:30 88 20 96 03/27/20 14:00 18 03/27/20 13:34 97.7 F 84 20 96 03/27/20 13:00 18 03/27/20 12:00 20 03/27/20 11:58 99.8 F 85 12 117/58 98 03/27/20 11:00 22 03/27/20 10:00 22 03/27/20 09:52 70 20 98 Home Medications Medication Instructions Recorded Confirmed Last Taken Type Diclofenac Sodium [Diclofenac 100 mg PO BID 03/27/20 03/27/20 Unknown History Sodium ER] Hydroxychloroquine Sulfate 200 mg PO DAILY 03/27/20 03/27/20 Unknown History Levothyroxine Sodium 75 Mcg 75 mcg PO DAILY 03/27/20 03/27/20 Unknown History [Synthroid 75 Mcg] Current Medications Generic Name Dose Route Start Last Admin Trade Name Freq PRN Reason Stop Dose Admin Acetaminophen 650 mg 03/27/20 04:15 03/27/20 10:43 Tylenol 325 Mg PO 04/26/20 04:14 650 mg Q4H PRN PRN Administration PAIN AND/OR FEVER Dexamethasone Sodium Phosphate 4 mg 03/28/20 14:00 Decadron 4 Mg Inj IV 04/27/20 13:59 Q12H CHARLY Diclofenac Sodium 100 mg 03/27/20 17:00 03/28/20 08:08 Voltaren 50 Mg PO 04/26/20 16:59 100 mg BIDWM CHARLY Administration Hydroxychloroquine Sulfate 200 mg 03/27/20 17:00 03/27/20 16:40 Hydroxychloroquine Sulfate PO 04/26/20 16:59 200 mg DAILY CHARLY Administration Sodium Chloride 1,000 mls @ 0 mls/hr 03/27/20 04:15 03/27/20 17:42 Sodium Chloride 0.9% 1000 Ml IV 04/26/20 04:14 30 mls/hr .Q0M CHARLY Administration KVO Ceftriaxone Sodium/Dextrose 1 g in 50 mls @ 100 mls/hr 03/27/20 22:00 03/27/20 22:00 Rocephin 1 Gm-D5w 50 Ml Bag IV 04/26/20 21:59 100 mls/hr QPM CHARLY Administration Levothyroxine Sodium 75 mcg 03/27/20 17:00 03/28/20 08:20 Synthroid 75 Mcg PO 04/26/20 16:59 75 mcg DAILY CHARLY Administration Ondansetron HCl 4 mg 03/27/20 04:15 Zofran 4 Mg/2 Ml Vial IV 04/26/20 04:14 Q6H PRN PRN NAUSEA/VOMITING Discontinued Medications Generic Name Dose Route Start Last Admin Trade Name Freq PRN Reason Stop Dose Admin Dexamethasone Sodium Phosphate 4 mg 03/27/20 09:15 03/28/20 01:00 Decadron 4 Mg Inj IV 04/26/20 09:14 4 mg Q8H CHARLY Administration Sodium Chloride 1,000 mls @ 999 mls/hr 03/26/20 22:59 03/26/20 23:52 Sodium Chloride 0.9% 1000 Ml IV 03/26/20 23:59 Not Given .Q1H1M STA Sodium Chloride Confirm 03/26/20 23:08 Sodium Chloride 0.9% 1000 Ml Administered 03/26/20 23:09 Dose 1,000 mls @ ud .ROUTE .STK-MED ONE Ceftriaxone Sodium/Dextrose 1 g in 50 mls @ 100 mls/hr 03/27/20 02:08 03/27/20 02:38 Rocephin 1 Gm-D5w 50 Ml Bag IV 03/27/20 02:37 100 ml/hr STAT STA 100 mls/hr Administration Ceftriaxone Sodium/Dextrose Confirm 03/27/20 02:27 Rocephin 1 Gm-D5w 50 Ml Bag Administered 03/27/20 02:28 Dose 1 g in 50 mls @ ud IV .STK-MED ONE Sodium Chloride Confirm 03/27/20 04:19 Sodium Chloride 0.9% 500 Ml Administered 03/27/20 04:20 Dose 500 mls @ ud IV .STK-MED ONE Intake & Output (Last 24 hours) 03/25/20 03/26/20 03/27/20 03/28/20 11:59 11:59 11:59 11:59 Intake Total 340 892 Output Total 850 1850 Balance -510 -958 Weight 59.1 kg Laboratory Results (Last 24 hours) 03/28/20 03/28/20 06:20 06:20 WBC 5.7 RBC 4.70 Hgb 14.6 Hct 45.8 MCV 97.4 MCH 31.1 MCHC 31.9 L RDW 15.1 H Plt Count 141 L MPV 10.9 Sodium 139 D Potassium 4.0 Chloride 107 Carbon Dioxide 26 Anion Gap 10.0 BUN 18 H Creatinine 0.74 Estimated GFR > 60.0 Glucose 157 H Calcium 8.7 Total Bilirubin 0.40 AST 43 H ALT 16 Alkaline Phosphatase 66 Serum Total Protein 7.1 Albumin 3.4 L Orders (Last 24 hours) Category Date Time Status ABG [ARTERIAL BLOOD GASES] Stat Lab 03/27/20 08:57 Completed CBC W DIFF AM.LAB Lab 03/28/20 06:20 Completed CMP AM.LAB Lab 03/28/20 06:20 Completed Manual Differential NC Routine Lab 03/28/20 06:20 Completed Ceftriaxone 1 GM/50 ML PREMIX* [ROCEPHIN 1 Gm-D5w 50 ml Med 03/27/20 22:00 Active Bag] 1 g in 50 ml IV QPM Dexamethasone 4 mg [Decadron 4 MG INJ] Med 03/28/20 14:00 Active 4 mg IV Q12H Dexamethasone 4 mg [Decadron 4 MG INJ] Med 03/27/20 09:15 Discontinued 4 mg IV Q8H Diclofenac Sodium 50 mg [Voltaren 50 mg] Med 03/27/20 17:00 Active 100 mg PO BIDWM Hydroxychloroquine Sulfate Med 03/27/20 17:00 Active 200 mg PO DAILY Levothyroxine Sodium 75 Mcg [Synthroid 75 Mcg] Med 03/27/20 17:00 Active 75 mcg PO DAILY IPPB Treatment TID RT 03/27/20 13:00 Active Patient Care Notes (Last 24 hours) 03/27/20 20:56 Respiratory Note by Nicolasa Alba PAP DONE WITH PATIENT Initialized on 03/27/20 20:56 - END OF NOTE 03/27/20 14:34 Respiratory Note by Thao Solano STARTED AND COMPLETED AT 1350. Initialized on 03/27/20 14:34 - END OF NOTE Code(s): U07.1 - COVID-19 (2) Pneumonia Current Visit: Yes Status: Acute Qualifiers: Pneumonia type: due to unspecified organism Laterality: bilateral Lung location: unspecified part of lung Qualified Code(s): J18.9 - Pneumonia, unspecified organism Code(s): J18.9 - PNEUMONIA, UNSPECIFIED ORGANISM
[2020-03-28 10:41] LABS: BAND 11 % (0.0-2.0); Lymphocytes 10 % (24-44); Monocyte 7 % (0.0-12.0); Neutrophils 72 % (36.0-66.0); Platelet Estimate NORMAL (NORMAL); Total Cells Counted 100
[2020-03-28] MEDS ORDERED: Ativan 1 MG PO PRN (17:01)
[2020-03-29] MEDS: Decadron 4 MG INJ IV SCH (01:32)
[2020-03-29] MEDS: Sodium Chloride 0.9% 1000 ML 1,000 ML IV SCH (01:38)
[2020-03-29 07:03] VITALS: BP 146/76; O2SAT 96
[2020-03-29] MEDS: SYNTHROID 75 MCG PO SCH (07:21)
[2020-03-29] MEDS: HYDROXYCHLOROQUINE SULFATE PO SCH (07:23)
[2020-03-29] MEDS: VOLTAREN 50 MG PO SCH (07:23)
[2020-03-29 11:46] VITALS: PULSE 74
== END 2020-03-29 12:55 | disposition home or self-care (01) | DRG 177 ==
LOC: ED 22:12 → MED SURG 03-27 04:01
PROVIDERS: ADMIT General Practice; ATTEND General Practice
DX: U07.1 COVID-19 (principal); J18.9 Pneumonia, unspecified organism; R41.0 Disorientation, unspecified; R05 Cough; R51 Headache; R53.1 Weakness; J44.9 Chronic obstructive pulmonary disease, unspecified; Z79.899 Other long term (current) drug therapy
CPT/HCPCS: 36000; 36415; 36600; 71045; 80053; 81001; 82375; 82803; 83605; 85025; 86308; 87040; 87631; 87651; 93005; 94640; 94760; 94762; 96365; 99284; U0003; J0696; J1100; A9270-GY

== ENCOUNTER 2020-03-31 14:58 | Inpatient (IN) | payer MEDICARE ==
--- NOTE | 2020-03-31 16:00 | ERPHSYRPT ---
- History of Present Illness Time Seen by Provider: 03/31/20 15:20 Source: patient Exam Limitations: no limitations Patient Subjective Stated Complaint: " I feel confused and I have a wet cough, I feel week. " Triage Nursing Assessment: Pt presents to ER with complaints of confusion onset today, pt is alert but can't remember time but is aware of place and person. Pt states she feels week all over and believes she's been running a fever. Pt skin does feel hot to touch but is afebrile upon triage with oral thermometer. Pt denies any pains. Pt lungs are clear but diminished throughout. Wet cough. Pt denies nausea, vomiting, or diarrhea. Pt able soft and nontender. Pulses present and strong. No edema noted. Physician History: Patient is an 85-year-old female presents to our ED via EMS for evaluation of feeling confused and a wet sounding cough. Patient states she has been feeling very weak over the past several days. Patient advises staff of a subjective fever. Patient currently afebrile. No associated chest pain or shortness of breath. No nausea vomiting or diaphoresis. Symptoms have been progressive. Symptoms are mild to moderate intensity. No specific worsening or improving factors. No associated diarrhea. No rash. Patient voices no other complaints at this time. Timing/Duration: today, day(s) (2) Severity: mild Associated Symptoms: denies symptoms Allergies/Adverse Reactions: Penicillins Allergy (Verified 03/31/20 15:21) Home Medications: Diclofenac Sodium [Diclofenac Sodium ER] 100 mg PO BID 03/27/20 [History] Hydroxychloroquine Sulfate 200 mg PO DAILY 03/27/20 [History] Levothyroxine Sodium 75 Mcg [Synthroid 75 Mcg] 75 mcg PO DAILY 03/27/20 [History] Hx Tetanus, Diphtheria Vaccination/Date Given: Yes Hx Influenza Vaccination/Date Given: Yes Hx Pneumococcal Vaccination/Date Given: Yes Immunizations Up to Date: Yes Travel Risk - International Travel Have you traveled outside of the country in past 3 weeks: No - Coronavirus Screening Are you exhibiting any of the following symptoms?: Yes Symptoms: Fever, Cough: New Onset, Headaches/Body Aches/Fatigue Close contact with a COVID-19 positive Pt in past 14-21 Days: Yes - Review of Systems Constitutional: No Symptoms, No Fever, No Chills Eyes: No Symptoms Ears, Nose, & Throat: No Symptoms Respiratory: No Symptoms, No Cough, No Dyspnea Cardiac: No Symptoms, No Chest Pain, No Edema, No Syncope Abdominal/Gastrointestinal: No Symptoms, No Abdominal Pain, No Nausea, No Vomiting, No Diarrhea Genitourinary Symptoms: No Symptoms, No Dysuria Musculoskeletal: No Symptoms, No Back Pain, No Neck Pain Skin: No Symptoms, No Rash Neurological: No Symptoms, No Dizziness, No Focal Weakness, No Sensory Changes Psychological: No Symptoms Endocrine: No Symptoms Hematologic/Lymphatic: No Symptoms Immunological/Allergic: No Symptoms All Other Systems: Reviewed and Negative - Past Medical History Pertinent Past Medical History: Yes Neurological History: No Pertinent History ENT History: No Pertinent History Cardiac History: No Pertinent History Respiratory History: COPD Endocrine Medical History: No Pertinent History Musculoskeletal History: No Pertinent History GI Medical History: No Pertinent History History: No Pertinent History Psycho-Social History: No Pertinent History Female Reproductive Disorders: No Pertinent History Other Medical History: rheumatoid arthritis. pt poor historian, unable to get medical hx at this time. some medical hx obtained from daughter - Past Surgical History Past Surgical History: Yes Neuro Surgical History: No Pertinent History Cardiac: No Pertinent History Respiratory: No Pertinent History Gastrointestinal: Appendectomy Genitourinary: No Pertinent History Musculoskeletal: No Pertinent History Female Surgical History: Hysterectomy Other Surgical History: Pt poor historian - Social History Smoking Status: Never smoker Exposure to second hand smoke: No Drug Use: none Patient Lives Alone: No - Female History Hx Now: No - Nursing Vital Signs Nursing Vital Signs: Initial Vital Signs O2 Sat by Pulse Oximetry 95 03/31/20 15:00 Pain Scale Pain Intensity 0 - Physical Exam General Appearance: no apparent distress, alert Eye Exam: PERRL/EOMI, eyes nml inspection Ears, Nose, Throat Exam: normal ENT inspection, TMs normal, pharynx normal, moist mucous membranes Neck Exam: normal inspection, non-tender, supple, full range of motion Respiratory Exam: normal breath sounds, lungs clear, No respiratory distress Cardiovascular Exam: regular rate/rhythm, normal heart sounds, normal peripheral pulses Gastrointestinal/Abdomen Exam: soft, normal bowel sounds, No tenderness, No mass Back Exam: normal inspection, normal range of motion, No CVA tenderness, No vertebral tenderness Extremity Exam: normal inspection, normal range of motion, pelvis stable Neurologic Exam: alert, oriented x 3, cooperative, normal mood/affect, nml cerebellar function, nml station & gait, sensation nml, No motor deficits Skin Exam: normal color, warm, dry, No rash Lymphatic Exam: No adenopathy SpO2 Interpretation: normal SpO2: 94 O2 Delivery: Room Air - Course Nursing assessment & vital signs reviewed: Yes EKG Interpreted by Me: RATE (75), Sinus Rhythm, NORMAL AXIS, NORMAL INTERVALS - Radiology Exams Chest X-ray Interpretation: Teleradiologist Report (Bullous emphysema. Otherwise no acute findings.) Ordered Tests: Active Orders 24 hr Category Date Time Status Director Of Supply Chain STAT Care 03/31/20 15:55 Active EKG-ER Only STAT Care 03/31/20 15:55 Active IV Insertion STAT Care 03/31/20 15:55 Active Pulse Oximetry (ED) STAT Care 03/31/20 15:55 Active CHEST 1 VIEW (PORTABLE) Stat Exams 03/31/20 15:55 Completed CBC W DIFF Stat Lab 03/31/20 16:10 Completed CMP Stat Lab 03/31/20 16:10 Completed Manual Differential NC Stat Lab 03/31/20 16:10 Completed NT PRO BNP Stat Lab 03/31/20 16:10 Completed TROPONIN Q3H Lab 03/31/20 16:10 Completed TROPONIN Q3H Lab 03/31/20 19:00 Ordered TROPONIN Q3H Lab 03/31/20 22:00 Ordered TROPONIN Q3H Lab 04/01/20 01:00 Ordered TROPONIN Q3H Lab 04/01/20 04:00 Ordered Lab/Rad Data: Laboratory Result Diagrams 03/31/20 16:10 03/31/20 16:10 Laboratory Results 03/31/20 03/31/20 03/31/20 Range/Units 16:10 16:10 16:10 WBC 6.6 (4.0-10.5) K/mm3 RBC 4.74 (4.1-5.4) M/mm3 Hgb 14.9 (12.0-16.0) gm/dl Hct 45.1 (35-47) % MCV 95.1 (78-100) fl MCH 31.4 (26-32) pg MCHC 33.0 (32-36) g/dl RDW 14.9 H (11.5-14.0) % Plt Count 117 L (150-450) K/mm3 MPV 10.8 (7.5-11.0) fl Sodium 133 L (137-145) mmol/L Potassium 4.1 (3.5-5.1) mmol/L Chloride 97 L (98-107) mmol/L Carbon Dioxide 29 (22-30) mmol/L Anion Gap 10.9 (5-15) MEQ/L BUN 15 (7-17) mg/dL Creatinine 0.90 (0.52-1.04) mg/dL Estimated GFR > 60.0 ML/MIN Glucose 100 (74-106) mg/dL Calcium 8.7 (8.4-10.2) mg/dL Total Bilirubin 0.60 (0.2-1.3) mg/dL AST 32 (14-36) U/L ALT 16 (0-35) U/L Alkaline Phosphatase 62 (38-126) U/L Troponin I < 0.012 (0.000-0.034) ng/mL NT-Pro-B Natriuret Pep 321 (0-1800) pg/mL Serum Total Protein 7.4 (6.3-8.2) g/dL Albumin 3.7 (3.5-5.0) g/dL - Progress Progress: improved Progress Note: 03/31/20 18:32 Patient reassessed. She feels well. Patient is somewhat hypoxic. However 95% on 4 L nasal cannula. Case discussed with Dr. Arndt who advises admission. Dr. Dye accepts admission to observation to the COVID unit. Plan of care di scussed with patient. She agrees to admission to [facility] for further evaluation and treatment. Discussed with DrDaquan: Other (Manrie) Will see patient in: hospital (observation) Counseled pt/family regarding: lab results, diagnosis, rad results - Departure Departure Disposition: Home, In-patient Admission Clinical Impression: Hypoxia, COVID-19, Lung bullae Condition: Stable Critical Care Time: No Referrals: KYRA CROCKER MD [Primary Care Provider] -
[2020-03-31 16:25] LABS: Hematocrit 45.1 % (35-47); Hemoglobin 14.9 gm/dl (12.0-16.0); Mean Cell Volume 95.1 fl (78-100); Mean Corpuscular Hemoglobin 31.4 pg (26-32); Mean Platelet Volume 10.8 fl (7.5-11.0); Platelet Count 117 K/mm3 (150-450); Red Blood Count 4.74 M/mm3 (4.1-5.4); Red Cell Distribution Width 14.9 % (11.5-14.0); White Blood Count 6.6 K/mm3 (4.0-10.5)
--- NOTE | 2020-03-31 16:41 | XRAY ---
Exam: AP upright portable chest film from 03/31/2020. Comparison: AP upright portable chest film from 03/27/2020. Indication: Pneumonia. Findings: The image was obtained in a mildly lordotic projection. The transverse heart size appears within normal limits. Surgical suture material is again seen projected over the left midlung field. Correlate with prior surgical history. Bulla are seen within both lung apices, more prominent on the left than right. In addition, there are increased interstitial lung markings within the lower two thirds of each hemithorax. There appears to be slight improvement from 03/27/2020. I believe that much of this is due to chronic interstitial lung disease. A superimposed dense airspace infiltrate or consolidation is not seen. There is no pneumothorax. Respiratory tubing overlies the left lung apex. There is slight blunting of the left lateral costophrenic angle which could be due to pleural thickening or tiny amount of pleural fluid. This is unchanged. The bones are demineralized. Mild convexity of the lower midthoracic spine toward the right is seen. There is some degenerative changes within both acromioclavicular joints and the lower thoracic spine. Impression: 1. Prior prominent interstitial lung markings within the lower two thirds of each hemithorax appear slightly improved from 03/27/2020. What remains may be due to chronic interstitial lung disease. No new dense consolidation is seen. 2. 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 3. Surgical suture material is again seen overlying the mid aspect of the left lung. Correlate with prior surgical history.
[2020-03-31 16:47] LABS: ALBUMIN 3.7 g/dL (3.5-5.0); ALKALINE PHOSPHATASE 62 U/L (38-126); ANION GAP 10.9 MEQ/L (5-15); BLOOD UREA NITROGEN 15 mg/dL (7-17); CHLORIDE 97 mmol/L (98-107); Calcium 8.7 mg/dL (8.4-10.2); Carbon Dioxide 29 mmol/L (22-30); Glucose 100 mg/dL (74-106); NT PRO BNP 321 pg/mL (0-1800); Potassium 4.1 mmol/L (3.5-5.1); SGOT/AST 32 U/L (14-36); SGPT/ALT 16 U/L (0-35); SODIUM 133 mmol/L (137-145); Total Protein 7.4 g/dL (6.3-8.2)
[2020-03-31 18:23] LABS: BAND 12 % (0.0-2.0); Lymphocytes 12 % (24-44); Monocyte 9 % (0.0-12.0); Neutrophils 67 % (36.0-66.0); Total Cells Counted 100
[2020-03-31 18:24] LABS: Platelet Estimate NORMAL (NORMAL)
[2020-03-31] MEDS ORDERED: TYLENOL EXTRA STRENGTH 500 MG PO PRN (20:56)
[2020-04-01 06:09] LABS: Hematocrit 48.1 % (35-47); Hemoglobin 15.4 gm/dl (12.0-16.0); Mean Cell Volume 96.2 fl (78-100); Mean Corpuscular Hemoglobin 30.8 pg (26-32); Mean Platelet Volume 11.1 fl (7.5-11.0); Platelet Count 112 K/mm3 (150-450); Red Cell Distribution Width 14.9 % (11.5-14.0); White Blood Count 6.1 K/mm3 (4.0-10.5)
[2020-04-01 06:30] LABS: ALBUMIN 3.6 g/dL (3.5-5.0); ALKALINE PHOSPHATASE 64 U/L (38-126); ANION GAP 12.2 MEQ/L (5-15); BLOOD UREA NITROGEN 16 mg/dL (7-17); CHLORIDE 101 mmol/L (98-107); Calcium 8.5 mg/dL (8.4-10.2); Carbon Dioxide 26 mmol/L (22-30); Creatinine 1 0.77 mg/dL (0.52-1.04); Glucose 82 mg/dL (74-106); Potassium 3.8 mmol/L (3.5-5.1); SGOT/AST 34 U/L (14-36); SGPT/ALT 16 U/L (0-35); SODIUM 135 mmol/L (137-145); Total Protein 7.3 g/dL (6.3-8.2)
[2020-04-01 08:12] LABS: BAND 9 % (0.0-2.0); Eosinophil 3 % (0.00-3.0); Lymphocytes 19 % (24-44); Monocyte 7 % (0.0-12.0); Neutrophils 62 % (36.0-66.0); Total Cells Counted 100
[2020-04-01 08:13] LABS: Platelet Estimate NORMAL (NORMAL)
[2020-04-01] MEDS: VOLTAREN 50 MG PO SCH ×2 (11:54→21:53)
[2020-04-01] MEDS: SYNTHROID 75 MCG PO SCH (12:18)
[2020-04-01] MEDS ORDERED: DICLOFENAC SODIUM 100 MG PO SCH (22:00)
[2020-04-01] MEDS ORDERED: Ativan 1 MG PO PRN (22:31)
[2020-04-02 05:46] LABS: Hematocrit 47.1 % (35-47); Hemoglobin 15.4 gm/dl (12.0-16.0); Mean Cell Volume 95.3 fl (78-100); Mean Corpuscular Hemoglobin 31.2 pg (26-32); Mean Corpuscular Hgb Concent. 32.7 g/dl (32-36); Mean Platelet Volume 10.8 fl (7.5-11.0); Platelet Count 114 K/mm3 (150-450); Red Blood Count 4.94 M/mm3 (4.1-5.4); Red Cell Distribution Width 14.9 % (11.5-14.0); White Blood Count 7.5 K/mm3 (4.0-10.5)
[2020-04-02 06:02] LABS: ANION GAP 9.8 MEQ/L (5-15); Calcium 8.4 mg/dL (8.4-10.2); Creatinine 1 1.01 mg/dL (0.52-1.04); Potassium 3.8 mmol/L (3.5-5.1)
[2020-04-02] MEDS ORDERED: Ativan 1 MG PO PRN (07:15)
[2020-04-02] MEDS: SYNTHROID 75 MCG PO SCH (07:22)
[2020-04-02] MEDS: VOLTAREN 50 MG PO SCH (09:46)
[2020-04-02 14:37] VITALS: BP 132/67; PULSE 74; O2SAT 97
--- NOTE | 2020-04-08 11:33 | DS ---
ADMISSION DIAGNOSES: 1) COVID. 2) Respiratory distress. DISCHARGE DIAGNOSES: 1) COVID. 2) RESPIRATORY DISTRESS. DISCHARGE PLAN: The patient will require oxygen at 2 liters and has been set up with home health care. himself has had DENNISE is at home and can help take care of her. She is ambulatory. CHIEF COMPLAINT: Shortness of breath. HISTORY OF PRESENT ILLNESS: The patient had been admitted earlier for COVID after being exposed at a yazidism function. Her had also been admitted and has gone home and doing well. She got more short of breath on the day of admission and came to the emergency room and was felt to need to be observed and watched carefully. She denies any GI symptoms except for slight nausea. 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 She states she was feeling better overnight since she had been staying here. She lives in [place] close to where I live. Interestingly enough she still drives and rides a bicycle occasionally and we joked that they would go for a bicycle ride after she recovered if she buys a helmet. She does not smoke cigarettes, does not drink alcohol, a very pleasant lady. REVIEW OF SYSTEMS: HEENT: Slightly hard of hearing, slightly hard at memory. CHEST: Few crackles, short of breath on exertion. Coughing, discharge in her nose had been much worse when she was admitted, I believe, on 04/02/2020. CVS: No murmurs or gallops. ABDOMEN: Normal bowel sounds. EXTREMITIES: Thin. No edema. Mild degenerative changes of the knees, moves all. IJMPRESSION: COVID pneumonia, incidental gait instability at this time, weakness and COVID. PLAN: Observation, ambulation, oxygen, consider using some IV Decadron, continue Voltaren, continue levothyroxine. Discontinue the hydroxychloroquine. HOSPITAL COURSE: The patient each day improved. She became more alert, more talkative, was able to ambulate quite well to the bathroom and around her room. Her O2 saturations stayed above 90 on 2 liters. DISCHARGE PLAN: She will be sent home with home health. Her is there and can help her also. Oxygen at 2 liters 24 hours 7 days a week and hopefully will be able to wean her off of that. I will probably try to make a house call in the near future. PROGNOSIS: Fair.
== END 2020-04-02 14:44 | disposition home health service (06) | DRG 179 ==
LOC: ED 14:58 → MED SURG 18:48 → INTOOBSV 18:48 → OBSVTOIN 18:48
PROVIDERS: ADMIT Family Medicine; ATTEND Family Medicine
DX: U07.1 COVID-19 (principal); R41.0 Disorientation, unspecified; R53.1 Weakness; J44.9 Chronic obstructive pulmonary disease, unspecified; R26.81 Unsteadiness on feet; Z79.899 Other long term (current) drug therapy; R06.03 Acute respiratory distress; M17.0 Bilateral primary osteoarthritis of knee
CPT/HCPCS: 36415; 71045; 80048; 80053; 83880; 84484; 85025; 85027; 93005; 93041; 94640; 94760; 94762; 99285; A9270-GY

== ENCOUNTER 2021-04-04 09:37 | Emergency (ER) | payer MEDICARE ==
[2021-04-04 10:05] VITALS: O2SAT 95
--- NOTE | 2021-04-04 11:21 | ERPHSYRPT ---
- History of Present Illness Time Seen by Provider: 04/04/21 10:10 Source: patient Exam Limitations: no limitations Patient Subjective Stated Complaint: pt reports fall at 0200 today, states she was returning from the restroom when she became dizzy and fell in her room cau sing a skin tear to her right elbow. pt denies any other injury at this time, denies LOC, denies striking her head. pt reports cleaning her arm well at home before applying antibiotc ointment and dressing. Triage Nursing Assessment: pt is aox3, pupils perrl, afebrile, resps easy and non labored, radial pulses strong, cap refill < 3 seconds, pt skin pink warm dry. approx 6cm skin tear to the right elbow, no bleeding at this time. sensation intact. no other obvious injuries or deformities. Physician History: Is an 86-year-old female who fell going to the bathroom causing a skin tear to her right elbow she denies any other injury she denies any other pain she did not hit her head. There was no loss of consciousness. She says that it is tadeo nful to move her elbow but it is just because of the skin tear she has full range of motion no deformity. This occurred just prior to arrival Timing/Duration: today Quality: painful Severity: moderate Location: extremities (Right elbow) Allergies/Adverse Reactions: Penicillins Allergy (Verified 04/04/21 10:05) Home Medications: Diclofenac Sodium [Diclofenac Sodium ER] 100 mg PO BID 03/27/20 [History] Levothyroxine Sodium 75 Mcg [Synthroid 75 Mcg] 75 mcg PO DAILY 03/27/20 [History] Hx Tetanus, Diphtheria Vaccination/Date Given: Yes Hx Influenza Vaccination/Date Given: Yes Hx Pneumococcal Vaccination/Date Given: Yes Immunizations Up to Date: Yes Travel Risk - International Travel Have you traveled outside of the country in past 3 weeks: No - Coronavirus Screening Are you exhibiting any of the following symptoms?: No Close contact with a COVID-19 positive Pt in past 14-21 Days: No - Vaccine Status Have you recieved a Covid-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: Yes 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 - Vaccination Dates Date of 2cond Vaccination (if applicable): 09/25/2020 - Review of Systems Constitutional: No Fever, No Chills Eyes: No Symptoms Ears, Nose, & Throat: No Symptoms Respiratory: No Cough, No Dyspnea Cardiac: No Chest Pain, No Edema, No Syncope Abdominal/Gastrointestinal: No Abdominal Pain, No Nausea, No Vomiting, No Diarrhea Genitourinary Symptoms: No Dysuria Musculoskeletal: No Back Pain, No Neck Pain Skin: Other (Skin tear), No Rash Neurological: No Dizziness, No Focal Weakness, No Sensory Changes Psychological: No Symptoms Endocrine: No Symptoms All Other Systems: Reviewed and Negative - Past Medical History Pertinent Past Medical History: Yes Neurological History: No Pertinent History ENT History: No Pertinent History Cardiac History: No Pertinent History Respiratory History: COPD Endocrine Medical History: No Pertinent History Musculoskeletal History: No Pertinent History GI Medical History: No Pertinent History History: No Pertinent History Psycho-Social History: No Pertinent History Female Reproductive Disorders: No Pertinent History Other Medical History: rheumatoid arthritis. pt poor historian, unable to get medical hx at this time. some medical hx obtained from daughter - Past Surgical History Past Surgical History: Yes Neuro Surgical History: No Pertinent History Cardiac: No Pertinent History Respiratory: No Pertinent History Gastrointestinal: Appendectomy Genitourinary: No Pertinent History Musculoskeletal: No Pertinent History Female Surgical History: Hysterectomy Other Surgical History: Pt poor historian - Social History Smoking Status: Never smoker Exposure to second hand smoke: No Drug Use: none Patient Lives Alone: No - Female History Hx Now: No - Nursing Vital Signs Nursing Vital Signs: Initial Vital Signs Temperature 98 F 04/04/21 09:55 Pulse Rate 81 04/04/21 09:55 Respiratory Rate 18 04/04/21 09:55 Blood Pressure 130/64 04/04/21 09:55 O2 Sat by Pulse Oximetry 95 04/04/21 09:55 Pain Scale Pain Intensity 7 - Physical Exam General Appearance: no apparent distress, alert Eye Exam: PERRL/EOMI, eyes nml inspection Ears, Nose, Throat Exam: normal ENT inspection, pharynx normal, moist mucous membranes Neck Exam: normal inspection, non-tender, supple, full range of motion Respiratory Exam: normal breath sounds, lungs clear, No respiratory distress Cardiovascular Exam: regular rate/rhythm, normal heart sounds Gastrointestinal/Abdomen Exam: soft, mass, No tenderness Back Exam: normal inspection, normal range of motion, No CVA tenderness, No ve rtebral tenderness Extremity Exam: normal inspection, normal range of motion ( large skin tear to the elbow very superficial skin was cleaned and reviewed the wound was cleaned and the skin replaced and Steri-Stripped), other (There is a) Neurologic Exam: alert, oriented x 3, cooperative, normal mood/affect, sensation nml, No motor deficits Skin Exam: normal color, warm, dry, other (Skin tear left elbow) SpO2: 95 Procedures - Laceration/Wound Repair Right Posterior Elbow Time of Procedure: 11:19 Wound Location: Left, upper arm (Elbow) Wound Length (cm): 6 Wound's Depth, Shape: superficial Wound Explored: clean Irrigated: Yes Hibiclens Prep: Yes Wound Repaired With: Steri-strips (Wound was cleaned skin was replaced and secured with Steri-Strips no anesthesia was used. This was done by the physician.) - Course Nursing assessment & vital signs reviewed: Yes - Progress Progress: improved - Departure Departure Disposition: Home Clinical Impression: Skin tear of elbow without complication Condition: Stable Critical Care Time: No Referrals: KYRA CROCKER MD [Primary Care Provider] - Instructions: Wound Care (DC)
[2021-04-04 11:23] VITALS: BP 112/60; PULSE 79
== END 2021-04-04 11:46 | disposition home or self-care (01) ==
LOC: ED 09:37
DX: S51.011A Laceration without foreign body of right elbow, initial encounter (principal); R42 Dizziness and giddiness; W01.10XA Fall on same level from slipping, tripping and stumbling with subsequent striking against unspecified object, initial encounter; Y92.9 Unspecified place or not applicable; Y99.9 Unspecified external cause status
CPT/HCPCS: 99282

== ENCOUNTER 2021-06-02 12:39 | Emergency (ER) | payer MEDICARE ==
[2021-06-02 13:50] VITALS: PULSE 88
--- NOTE | 2021-06-02 14:06 | XRAY ---
Indication: Status post fall. Multiple contiguous axial images obtained through the head without contrast. Comparison: None Age-appropriate global atrophy and moderate periventricular degenerative micro-ischemia bilaterally. No acute intracranial hemorrhage, abnormal extra-axial fluid collection, or mass effect. Fourth ventricle is midline without hydrocephalus. Bony calvarium intact. Visualized paranasal sinuses and mastoid air cells are clear. Impression: Nonacute senile brain.
--- NOTE | 2021-06-02 14:08 | XRAY ---
Indication: Status post fall. Multiple contiguous axial images obtained through the cervical spine. Sagittal and coronal reformatted images obtained. Impression: None Osseous structures demineralized consistent with patient's age. Axial images negative for acute fracture, suspicious bony lesions, or spinal canal stenosis. Mild C3-T1 degenerative endplate spurring and mild multilevel bilateral degenerative facet hypertrophy. Sagittal and coronal reformatted images demonstrate normal alignment with C3-T1 disc space narrowing. No acute compression fracture, subluxation, or jumped facet. Normal appearing craniocervical junction. Visualized noncontrasted soft tissues demonstrates partially visualized left Port-A-Cath and extensive biapical pulmonary emphysema. Impression: 1. Negative acute fracture/subluxation. 2. Osteopenia and multilevel degenerative changes. 3. Extensive pulmonary emphysema.
--- NOTE | 2021-06-02 14:11 | XRAY ---
Indication: Status post fall. Multiple contiguous axial images obtained through the lumbar spine. Sagittal and coronal reformatted images obtained. Impression: None Osseous structures demineralized consistent with patient's age. Axial images negative for acute fracture, suspicious bony lesions, or spinal canal stenosis. Minimal broad-based L2-L5 degenerative disc bulge and mild bilateral L5-S1 degenerative facet hypertrophy. Sagittal and coronal reformatted images demonstrates normal alignment with vertebral body heights/disc spaces maintained. No acute compression fracture or subluxation. Visualized noncontrasted soft tissues demonstrates mild aortoiliac calcifications and sigmoid diverticulosis. Impression: 1. Negative acute fracture/subluxation. 2. Osteopenia and multilevel degenerative changes. 3. Incidental arteriosclerotic calcifications and sigmoid diverticulosis.
--- NOTE | 2021-06-02 14:13 | XRAY ---
Indication: Status post fall. Comparison: March 31, 2020. Portable chest again demonstrates COPD, CIPD, left lung suture material, bibasilar calcified granulomas, and left base infiltrate/atelectasis. Heart not enlarged with new left Port-A-Cath. Bony thorax intact again with osteopenia and degenerative changes.
--- NOTE | 2021-06-02 14:15 | XRAY ---
Indication: Status post fall. Comparison: None 3 view right wrist demonstrates osteopenia, moderate/advanced 1st metacarpal multangular scaphoid degenerative changes, radiocarpal degenerative joint space loss, and posterior superficial punctate foreign bodies. No other bony, articular, or soft tissue abnormalities.
--- NOTE | 2021-06-02 14:15 | XRAY ---
Indication: Status post fall. Comparison: None 3 view right elbow demonstrate osteopenia. No other bony, articular, or soft tissue abnormalities.
--- NOTE | 2021-06-02 14:17 | XRAY ---
Indication: Status post fall. Comparison: None AP pelvis demonstrates osteopenia, lower lumbar degenerative spondylosis, mild bilateral hip degenerative changes, and tiny phleboliths right of L3-L4. No other bony, articular, or soft tissue abnormalities.
[2021-06-02 14:33] VITALS: BP 94/61; O2SAT 92
--- NOTE | 2021-06-02 14:36 | ERPHSYRPT ---
- History of Present Illness Time Seen by Provider: 06/02/21 12:45 Source: patient, family Exam Limitations: no limitations Patient Subjective Stated Complaint: "I fell in my bathroom and hit my head on the shower chair." Triage Nursing Assessment: Patient presented via private vehicle with reported mechanical fall at home. Patient's home health nurse reported that the patient struck her head and was complaining of back pain. Reported home vitals - hypotension and hypoxic. Patient reportd low back pain and hip pain. She was able to recall the events in full. Denied any loss of consciousness. the patient is pleasantly confused. She is alert to person and place but not time. pupils 3mm bilateral. Symmetrical chest expansion. heart tones S1/S2 RRR without extra sounds. Lungs vesicular with adequate airflow. Abdomen soft non-tender wihtout palpable organomegaly. Pain upon palpation to the lumbar spine and over the bilateral posterior iliac crests. Pelvis stable. Peripheral pulses +3 bilateral. Physician History: 86 years old female presented in the ER with chief complaint of ground-level fall after she tried to grab her walker which she missed and fell backward hitting her head against the bathroom chair without loss of consciousness. She also hit her right wrist and elbow and low back. She was having a difficult time getting up. Home health nurse noticed her blood pressure was in 80s and she was having mild difficulty breathing and hypoxia around 89/90%. Patient is satting around 93% on room air without any distress. Denies any dizziness or lightheadedness. Able to recall the whole sequence of events. Denies any chest or abdominal pain. No difficulty movements of pain joint but has some pain with movements of right wrist and elbow. She has a skin tear right hand. Up-to-date with tetanus. Occurred: just prior to arrival Reason for Fall: fell from standing pos Injuries/Pain Location: head, upper extremity, back, pelvis Loss of Consciousness: no loss of consciousness Quality: dullness, sharpness Severity of Pain-Max: moderate Severity of Pain-Current: mild Modifying Factors: Improves With: immobilization. Worsens With: movement Associated Symptoms (Fall): back pain, extremity injury, No confusion, No chest pain, No dizziness, No headache, No lightheadedness, No muscle spasms, No nausea, No neck pain, No ringing in ears, No seizures, No shortness of breath, No slurred speech, No vomiting, No vision changes Allergies/Adverse Reactions: Penicillins Allergy (Verified 06/02/21 12:52) Home Medications: Diclofenac Sodium [Diclofenac Sodium ER] 100 mg PO BID 03/27/20 [History] Levothyroxine Sodium 75 Mcg [Synthroid 75 Mcg] 75 mcg PO DAILY 03/27/20 [History] Hx Tetanus, Diphtheria Vaccination/Date Given: Yes Hx Influenza Vaccination/Date Given: Yes Hx Pneumococcal Vaccination/Date Given: Yes Travel Risk - International Travel Have you traveled outside of the country in past 3 weeks: No - Coronavirus Screening Are you exhibiting any of the following symptoms?: No Close contact with a COVID-19 positive Pt in past 14-21 Days: No - Vaccine Status Have you recieved a 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-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: 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 - Vaccination Dates Date of 2cond Vaccination (if applicable): march 2021 - Review of Systems Constitutional: No Symptoms Eyes: No Symptoms Ears, Nose, & Throat: No Symptoms Respiratory: No Symptoms Cardiac: No Symptoms Abdominal/Gastrointestinal: No Symptoms Genitourinary Symptoms: No Symptoms Musculoskeletal: Back Pain, Fall, Injury, Joint Pain Skin: Skin Lesions Neurological: No Symptoms Psychological: No Symptoms Endocrine: No Symptoms Hematologic/Lymphatic: No Symptoms Immunological/Allergic: No Symptoms - Past Medical History Pertinent Past Medical History: Yes Neurological History: No Pertinent History ENT History: No Pertinent History Cardiac History: No Pertinent History Respiratory History: COPD, Lung Cancer Endocrine Medical History: No Pertinent History Musculoskeletal History: No Pertinent History GI Medical History: No Pertinent History History: No Pertinent History Psycho-Social History: No Pertinent History Female Reproductive Disorders: No Pertinent History Other Medical History: rheumatoid arthritis. pt poor historian, unable to get medical hx at this time. some medical hx obtained from daughter - Past Surgical History Past Surgical History: Yes Neuro Surgical History: No Pertinent History Cardiac: No Pertinent History Respiratory: No Pertinent History Gastrointestinal: Appendectomy Genitourinary: No Pertinent History Musculoskeletal: No Pertinent History Female Surgical History: Hysterectomy Other Surgical History: Pt poor historian - Social History Smoking Status: Never smoker Exposure to second hand smoke: No Drug Use: none Patient Lives Alone: No - Nursing Vital Signs Nursing Vital Signs: Initial Vital Signs Temperature 97.7 F 06/02/21 12:39 Pulse Rate 92 H 06/02/21 12:39 Respiratory Rate 18 06/02/21 12:39 Blood Pressure 111/72 06/02/21 12:39 O2 Sat by Pulse Oximetry 93 L 06/02/21 12:39 Pain Scale Pain Intensity 4 - [place] Coma Score Best Eye Response (My): (4) open spontaneously Best Verbal Response ([place]): (5) oriented Best Motor Response ([place]): (6) obeys commands [place] Total: 15 - Physical Exam General Appearance: no apparent distress, alert Head Injury: contusions (Left occipitoparietal area with minimal tenderness), No Fong's Sign, No raccoon eyes Eye Exam: PERRL/EOMI, eyes nml inspection ENT Exam: airway nml, No evidence of ENT injury, No dental injury Neck Exam: supple, trachea midline, full range of motion, normal alignment, normal inspection, No focal neuro deficit Respiratory/Chest Exam: normal breath sounds, respiratory distress, No chest tenderness Cardiovascular Exam: normal heart sounds, regular rate/rhythm Gastrointestinal Exam: soft, normal bowel sounds, No tenderness Back Exam: normal inspection, vertebral tenderness (Lumbar spinal and paraspinal area), decreased range of motion, point tenderness Extremity Exam: normal range of motion, capillary refill <3 sec, pelvis stable (Minimal tenderness), lacerations (Superficial skin tear left hand dorsum. 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 as tested, normal mood/affect, sensation nml, No motor deficits Skin Exam: normal color SpO2 Interpretation: normal SpO2: 92 O2 Delivery: Room Air Ordered Tests: Active Orders 24 hr Category Date Time Status Wound Care STAT Care 06/02/21 14:40 Completed CERVICAL SPINE WO CONTRAST [CT] Stat Exams 06/02/21 13:24 Completed CHEST 1 VIEW (PORTABLE) Stat Exams 06/02/21 13:25 Completed ELBOW (MINIMUM 3 VIEWS) Stat Exams 06/02/21 13:25 Completed HEAD WITHOUT CONTRAST [CT] Stat Exams 06/02/21 13:24 Completed LUMBAR SPINE W/O [CT] Stat Exams 06/02/21 13:24 Completed PELVIS (1 OR 2 VIEWS) Stat Exams 06/02/21 13:25 Completed WRIST (MIN 3 VIEWS) Stat Exams 06/02/21 13:26 Completed - Progress Progress: improved Progress Note: 06/02/21 14:34 She is offered pain medication which she refused. She has a nonfocal neuro exam. It was a clearly mechanical fall witnessed by who is currently at bedside and thinks patient is at her baseline. CT head/cervical spine/lumbar spine negative for any acute findings related to trauma. Negative chest x- ray/pelvis/elbow and wrist. Steri-Strips applied to skin tear and nonadherent dressing placed. Outpatient follow-up. Discussed signs symptoms of worsening needing return to ER which patient/ seem understanding. Stable for discharge. Counseled pt/family regarding: diagnosis, need for follow-up, rad results - Departure Departure Disposition: Home Clinical Impression: Contusion of scalp Qualifiers: Encounter type: initial encounter Qualified Code(s): S00.03XA - Contusion of scalp, initial encounter Low back strain Qualifiers: Encounter type: initial encounter Qualified Code(s): S39.012A - Strain of muscle, fascia and tendon of lower back, initial encounter Tear of skin of wrist Qualifiers: Encounter type: initial encounter Laterality: right Qualified Code(s): S61.511A - Laceration without foreign body of right wrist, initial encounter Condition: Stable Critical Care Time: No Referrals: KYRA CROCKER MD [Primary Care Provider] - (1-2 days for reevaluation) Instructions: Contusion (DC), Preventing Falls Additional Instructions: Take Tylenol as needed for pain. Keep your wrist wound clean. Follow-up with primary care and may need wound care referral. Use walker for ambulation all the time. Return to ER for any symptoms of worsening headache, confusion, dizzy lightheaded etc.
== END 2021-06-02 14:50 | disposition home or self-care (01) ==
LOC: ED 12:39
DX: S39.012A Strain of muscle, fascia and tendon of lower back, initial encounter (principal); S61.511A Laceration without foreign body of right wrist, initial encounter; W01.198A Fall on same level from slipping, tripping and stumbling with subsequent striking against other object, initial encounter; Y93.89 Activity, other specified; Y92.89 Other specified places as the place of occurrence of the external cause; M54.50 Low back pain, unspecified; M25.559 Pain in unspecified hip; R41.0 Disorientation, unspecified; Z79.899 Other long term (current) drug therapy; M06.9 Rheumatoid arthritis, unspecified; Z85.89 Personal history of malignant neoplasm of other organs and systems; Z85.118 Personal history of other malignant neoplasm of bronchus and lung
CPT/HCPCS: 70450; 71045; 72125; 72131; 72170; 73080; 73110; 99284